=== PATIENT | female | born 1995 | race Caucasian/White ===

== ENCOUNTER → 2016-06-23 | Outpatient (CLI) | payer OTHER ==
[~2016-06-23] MED LIST: ACET-1256 PO; IBUP-1050 PO
[2016-06-27 04:24] LABS: CHLAMYDIA TRACH RNA*** NOT DETECTED (NOT DETECTED); GC (NEIS GONORRHOEAE)RNA** NOT DETECTED (NOT DETECTED)
== END | disposition home or self-care (01) ==
LOC: C.LABSPEC 17:37
PROVIDERS: ATTEND Physician Assistant
DX: Z12.4 Encounter for screening for malignant neoplasm of cervix (principal)

== ENCOUNTER → 2017-06-26 | Outpatient (CLI) | payer OTHER | END | disposition home or self-care (01) | LOC: C.PAPS 15:44 | PROVIDERS: ATTEND Physician Assistant | DX: Z12.4 Encounter for screening for malignant neoplasm of cervix (principal) ==

== ENCOUNTER → 2017-06-26 | Outpatient (CLI) | payer OTHER | END | disposition home or self-care (01) | LOC: C.LABSPEC 15:50 | PROVIDERS: ATTEND Physician Assistant | DX: Z12.4 Encounter for screening for malignant neoplasm of cervix (principal) ==

== ENCOUNTER 2017-10-06 16:04 | Emergency (ER) | payer OTHER ==
[~2017-10-06] VITALS: Ht 165.1 cm; Wt 77.1 kg
[2017-10-06 16:18] VITALS: TEMP 36.4; Ht 165.1 cm; Wt 77.1 kg
[2017-10-06] MEDS ORDERED: PROCHLORPERAZINE 5 MG/ML 2 ML VIAL IV STA (16:25)
[2017-10-06] MEDS ORDERED: DiphenhydrAMINE HCL 50 MG/ML VIAL IV STA (16:25)
[2017-10-06] MEDS ORDERED: KETOROLAC TROMETHAMINE 30 MG/ML VIAL IV STA (16:25)
[2017-10-06] MEDS ORDERED: SODIUM CHLORIDE 0.9% 1000ML 1,000 ML IV ONE (16:30)
--- NOTE | 2017-10-06 16:41 | EMERGENCY ROOM VISIT NOTE ---
History First contact with patient: 16:22 Chief Complaint: HEADACHE Stated Complaint: SEVERE MIGRAINE, PAINS, NUMBNESS, PASSING OUT History of Present Illness The patient is a 22 year old female who presents to the Emergency Room with complaints of a migraine headache that started prior to arrival. The patient describes a sharp, stabbing pain behind her right eye. She is sensitive to light. She has been nauseated with 3 episodes of vomiting. She has not tried anything [id number] for pain. The patient does have a history of migraines, however they usually are not this bad. She denies any fever or chills. No recent illnesses. Review of Systems 10 system review performed and negative unless noted in HPI or below Past Medical/Surgical History Medical Problems: (1) Lyme disease Family History Diabetes mellitus FH: cancer FH: lung disease Social History Smoking Status: Never Smoker Alcohol Use: none Marital Status: single Occupation Status: [employer] student Current/Historical Medications Scheduled Prochlorperazine Maleate (Compazine), 10 MG PO Q6H Physical Exam Vital Signs Date Time Temp Pulse Resp B/P (MAP) Pulse Ox O2 Delivery O2 Flow Rate FiO2 10/06/17 18:26 88 16 101/67 98 10/06/17 17:21 86 16 104/71 100 18 16:18 36.4 82 32 126/72 100 Room Air Physical Exam Exam is limited secondary to pain VITALS: Vitals are noted on the nurse's note and reviewed by myself. Vital signs stable. GENERAL: 22-year-old female, in obvious discomfort, SKIN: The skin was without rashes, erythema, edema, or bruising. HEAD: Normocephalic atraumatic. EARS: External auditory canals clear, tympanic membranes pearly clemens without erythema or effusion bilaterally. EYES: Pupils equal round and reactive to light and accommodation. Conjunctivae without injection, sclerae without icterus. Extraocular movements intact. MOUTH: Mucous membranes slightly dry NECK: Supple without nuchal rigidity. No lymphadenopathy. Cervical spine is nontender. No JVD. HEART: Regular rate and rhythm without murmurs gallops or rubs. LUNGS: Clear to auscultation bilaterally without wheezes, rales or rhonchi. No accessory muscle use. ABDOMEN: Positive bowel sounds x 4. MUSCULOSKELETAL: No muscle atrophy, erythema, or edema noted. Normal gait. Strength 5/5 throughout. NEURO: Patient was alert and oriented to person place and time. Cranial nerves grossly intact. Normal sensation to touch. No focal neurological deficits. Medical Decision & Procedures Laboratory Results 10/06/17 16:30 Red Blood Count 5.10, Mean Corpuscular Volume 87.8, Mean Corpuscular Hemoglobin 30.0, Mean Corpuscular Hemoglobin Concent 34.2, Mean Platelet Volume 10.1, Neutrophils (%) (Auto) 78.1, Lymphocytes (%) (Auto) 15.0, Monocytes (%) (Auto) 6.2, Eosinophils (%) (Auto) 0.2, Basophils (%) (Auto) 0.2, Neutrophils # (Auto) 7.85, Lymphocytes # (Auto) 1.51, Monocytes # (Auto) 0.62, Eosinophils # (Auto) 0.02, Basophils # (Auto) 0.02 10/06/17 16:30 Test 10/06/17 16:30 White Blood Count 10.05 K/uL (4.8-10.8) Red Blood Count 5.10 M/uL (4.2-5.4) Hemoglobin 15.3 g/dL (12.0-16.0) Hematocrit 44.8 % (37-47) Mean Corpuscular Volume 87.8 fL (80-100) Mean Corpuscular Hemoglobin 30.0 pg (25-34) Mean Corpuscular Hemoglobin Concent 34.2 g/dl (32-36) Platelet Count 333 K/uL (130-400) Mean Platelet Volume 10.1 fL (7.4-10.4) Neutrophils (%) (Auto) 78.1 % Lymphocytes (%) (Auto) 15.0 % Monocytes (%) (Auto) 6.2 % Eosinophils (%) (Auto) 0.2 % Basophils (%) (Auto) 0.2 % Neutrophils # (Auto) 7.85 K/uL (1.4-6.5) Lymphocytes # (Auto) 1.51 K/uL (1.2-3.4) Monocytes # (Auto) 0.62 K/uL (0.11-0.59) Eosinophils # (Auto) 0.02 K/uL (0-0.5) Basophils # (Auto) 0.02 K/uL (0-0.2) RDW Standard Deviation 40.0 fL (36.4-46.3) RDW Coefficient of Variation 12.4 % (11.5-14.5) Immature Granulocyte % (Auto) 0.3 % Immature Granulocyte # (Auto) 0.03 K/uL (0.00-0.02) Anion Gap 11.0 mmol/L (3-11) Est Creatinine Clear Calc Drug Dose 98.2 ml/min Estimated GFR () 101.8 Estimated GFR (Non- 87.9 BUN/Creatinine Ratio 13.2 (10-20) Calcium Level 9.9 mg/dl (8.5-10.1) Medications Administered Medications (Trade) Dose Ordered Sig/Steph Route Start Time Stop Time Status Last Admin Dose Admin Prochlorperazine Edisylate (Compazine Inj) 10 mg NOW STAT IV 10/06/17 16:25 10/06/17 16:27 DC 10/06/17 16:38 10 MG Diphenhydramine HCl (Benadryl Inj) 25 mg NOW STAT IV 10/06/17 16:25 10/06/17 16:27 DC 10/06/17 16:38 25 MG Ketorolac Tromethamine (Toradol Inj) 30 mg NOW STAT IV 10/06/17 16:25 10/06/17 16:27 DC 10/06/17 16:39 30 MG Sodium Chloride 1,000 ml @ 999 mls/hr Q1H1M ONCE IV 10/06/17 16:30 10/06/17 17:30 DC 10/06/17 16:38 999 MLS/HR ED Course Patient was seen and examined Vital signs including blood pressure were reviewed medications list was verified with patient Labs were obtained, and a saline lock was established The patient was medicated with Compazine 10 mg, Benadryl 25 mg and Toradol 10 mg IV. She was hydrated with 1 L of normal saline. Upon reevaluation, the patient was feeling much better. Her headache and nausea had improved. She was requesting something to drink. The patient was given 1 dose of potassium I reviewed discharge instructions the patient. They voiced understanding and had no further questions. Medical Decision Differential diagnosis: Migraine headache, cluster headache, tension headache, intracranial bleed, meningitis, dehydration among others were entertained This patient is a 22-year-old female who presents to emergency department with a severe headache, photophobia and vomiting. On exam, she was neurologically intact. Her workup here is fairly unremarkable. There is no leukocytosis or fever to suggest infection. The patient's potassium was low, which was repleted. She had excellent symptomatic relief in the emergency department with a migraine cocktail. I believe she is stable to be discharged home. I advised her to follow-up with [facility] services early next week. She was also cautioned on signs for which to return to the emergency department. This chart was completed in part utilizing [employer] Speech Voice Recognition software. Attempts were made to minimize the grammatical errors, random word insertions, pronoun errors and incomplete sentences. Any formal questions or concerns about the content, text or information contained within the body of this dictation should be directly addressed to the provider for clarification. Medication Reconcilliation Current Medication List: was personally reviewed by me Blood Pressure Screening Patient's blood pressure: Normal blood pressure Impression Primary Impression: Migraine Departure Information Dispostion Home / Self-Care Condition GOOD Prescriptions Prochlorperazine Maleate (COMPAZINE) 10 Mg Tab 10 MG PO Q6H for Nausea, #9 TAB Prov: Arabella Mackey PA-C 10/06/17 Referrals No Doctor, Assigned (PCP) Patient Instructions [facility] Additional Instructions You have been evaluated in the emergency department for a headache. This is likely a migraine. Please get plenty of rest tonight. Avoid alcohol. Stay well-hydrated. If the headache recurs, please take ibuprofen 600 mg, Benadryl 25 mg and Compazine 10 mg. These medications may be taken every 8 hours. Please follow-up with [facility] services early next week Do not hesitate to return to the emergency department with any new, worsening or concerning symptoms; especially, worsening headache, fever or confusion It was a pleasure participating in your care today
[2017-10-06 17:05] LABS: BASO % 0.2 %; BASO ABS # 0.02 K/uL (0-0.2); CREATININE 0.93 mg/dl (0.60-1.20); EOS % 0.2 %; EOS ABS # 0.02 K/uL (0-0.5); HEMATOCRIT 44.8 % (37-47); HEMOGLOBIN 15.3 g/dL (12.0-16.0); IG# 0.03 K/uL (0.00-0.02); LYMPH ABS # 1.51 K/uL (1.2-3.4); MEAN CELL VOLUME 87.8 fL (80-100); MEAN CORPUSCULAR HGB CONC 34.2 g/dl (32-36); MEAN PLATELET VOLUME 10.1 fL (7.4-10.4); MONO % 6.2 %; MONO ABS # 0.62 K/uL (0.11-0.59); NEUT % 78.1 %; NEUT ABS # 7.85 K/uL (1.4-6.5); PLATELET COUNT 333 K/uL (130-400); RED CELL DISTRIBUTION WIDTH CV 12.4 % (11.5-14.5); WHITE BLOOD COUNT 10.05 K/uL (4.8-10.8)
[2017-10-06 17:06] LABS: CALCIUM 9.9 mg/dl (8.5-10.1); POTASSIUM 3.2 mmol/L (3.5-5.1)
[2017-10-06] MEDS ORDERED: POTASSIUM CHLORIDE 10 MEQ TABCR PO STA (17:48)
[2017-10-06] MEDS ORDERED: PROC10TA PO (18:10)
[2017-10-06 18:26] VITALS: BP 101/67; PULSE 88; O2SAT 98
== END 2017-10-06 18:27 | disposition home or self-care (01) ==
LOC: C.EDB 16:06 → C.EDA 18:27
DX: G43.909 Migraine, unspecified, not intractable, without status migrainosus (principal); R11.0 Nausea; E87.6 Hypokalemia